=== PATIENT | female | born 1955 | race Caucasian/White ===

== ENCOUNTER 2017-11-01 23:56 | Emergency (ER) | payer OTHER ==
[~2017-11-01] VITALS: Ht 170.2 cm; Wt 76.5 kg
[~2017-11-01 23:56] MED LIST: AMLO10TA2 PO; LIPI10TA PO; LISI40TA PO; PROT40TA PO; PROZ20CA11 PO
[2017-11-02 00:02] VITALS: BP 130/74; PULSE 92; RESP 18; TEMP 97.8; O2SAT 97
[2017-11-02] MEDS ORDERED: ZOLP5TAB3 PO (00:13)
[2017-11-02] MEDS ORDERED: LOSA50TA PO (00:13)
[2017-11-02] MEDS ORDERED: HYDR25TA5 PO (00:13)
[2017-11-02] MEDS ORDERED: AMLO10TA2 PO (00:13)
[2017-11-02] MEDS ORDERED: TETANUS/DIPHTHERIA TOXOID PEDIATRIC 0.5 ML VIAL IM ONE (00:45)
--- NOTE | 2017-11-02 00:48 | PD ---
HPI Chief Complaint: Head Injury Time Seen by Provider: 00:03 Travel History International Travel<30 days: No Contact w/Intl Traveler<30days: No Traveled to known affect area: No History of Present Illness HPI The patient is a 62-year-old female that at 10:15 PM tonight fell about [address] on a corner of a countertop. It was no loss of consciousness and she denies any focal neurologic change or headache which she did sustain a laceration. She has not had a tetanus shot in 10 years. PFSH Past Medical History Anxiety: Yes Depression: Yes Cardiovascular Problems: Yes High Cholesterol: Yes Diminished Hearing: No GERD: Yes Hypertension: Yes Triglycerides - High: Yes Tetanus Vaccination: > 5 Years Influenza Vaccination: Yes ?: Not Menopausal: Yes : 2 Para: 0 Past Surgical History Joint Replacement: Yes (LEFT HIP) Family History Family Myocardial Infarction: Yes (MOTHER AND FATHER) Social History Alcohol Use: Yes (~3 X WEEKLY) Tobacco Use: No (QUIT 2009) Substance Use: No Allergies-Medications (Allergen,Severity, Reaction): Coded Allergies: codeine (Unverified Allergy, Mild, 11/02/17) meperidine (Unverified Allergy, Mild, 11/02/17) Reported Meds & Prescriptions Reported Meds & Active Scripts Active Reported Hydrochlorothiazide 25 Mg Tab 25 Mg PO DAILY Losartan (Losartan Potassium) 50 Mg Tab 50 Mg PO DAILY Amlodipine (Amlodipine Besylate) 10 Mg Tab 10 Mg PO DAILY Zolpidem (Zolpidem Tartrate) 5 Mg Tab 5 Mg PO HS Lipitor (Atorvastatin Calcium) 10 Mg Tab Unknown Dose PO HS Prozac (Fluoxetine HCl) 20 Mg Cap 20 Mg PO DAILY Protonix (Pantoprazole Sodium) 40 Mg Tab 40 Mg PO DAILY Review of Systems Except as stated in HPI: all other systems reviewed are Neg Physical Exam Narrative GENERAL: The patient is alert, oriented 3 in slight apparent distress with her laceration pain. Her vital signs are normal. SKIN: Focused skin assessment warm/dry. There is a V-shaped 2 cm laceration with 1 cm on each V on the occipital area. There is no associated skull deformity present. HEAD: Normocephalic. Neither raccoon eyes nor estrada sign is present. EYES: Pupils equal and round. No scleral icterus. No injection or drainage. ENT: No nasal bleeding or discharge. Mucous membranes pink and moist. There is no hemotympanum present. NECK: Trachea midline. No JVD. There is no C-spine tenderness and no posterior spinous process tenderness or deformity is present. CARDIOVASCULAR: Regular rate and rhythm. No murmur appreciated. RESPIRATORY: No accessory muscle use. Clear to auscultation. Breath sounds equal bilaterally. GASTROINTESTINAL: Abdomen soft, non-tender, nondistended. Hepatic and splenic margins not palpable. MUSCULOSKELETAL: No obvious deformities. No clubbing. No cyanosis. No edema. NEUROLOGICAL: Awake and alert. No obvious cranial nerve deficits. Motor grossly within normal limits. Normal speech. PSYCHIATRIC: Appropriate mood and affect; insight and judgment normal. Data Data Last Documented VS Vital Signs Date Time Temp Pulse Resp B/P (MAP) Pulse Ox O2 Delivery O2 Flow Rate FiO2 11/02/17 00:20 90 18 97 Room Air 11/02/17 00:02 97.8 130/74 (92) Orders Orders Wound Care (11/02/17 00:42) Ct Brain W/O Iv Contrast(Rout) (11/02/17 00:42) Tetanus/Diphtheria Tox Adult (Tetanus/Di (11/02/17 01:00) Acetaminophen (Tylenol) (11/02/17 02:15) MDM Medical Decision Making Medical Screen Exam Complete: Yes Emergency Medical Condition: Yes Medical Record Reviewed: Yes Interpretation(s) The CT the brain is normal. Differential Diagnosis Skull fracture-unlikely, laceration scalp, intracranial bleed-unlikely Narrative Course The patient has a scalp laceration. There is no evidence clinically or radiographically of skull fracture, intracranial bleed. Procedures Procedure Narrative The laceration was irrigated copiously with saline. A minimum of her cutting was done to expose the wound. Lidocaine with epinephrine was used to infiltrate the wound edges. 7 babak were put in. The patient tolerated the procedure fairly well. Diagnosis Primary Impression: Occipital scalp laceration Additional Instructions: Return in 7 days for staple removal. If you have any problems return immediately. Specifically if you get nausea, mental status or sudden onset of severe headache change he should return immediately, likely to [place] if you have these symptoms. Neurosurgery is done at [facility] and we will have to transfer him by ambulance at the worst possible time. Take plain Tylenol for pain. Med/Other Pt SpecificInfo: No Change to Meds Disposition: 01 DISCHARGE HOME Condition: Stable Raúl Olson MD Nov 02, 2017 00:47
[2017-11-02] MEDS ORDERED: TETANUS/DIPHTHERIA TOXOID ADULT 0.5 ML VIAL IM ONE (01:00)
--- NOTE | 2017-11-02 01:25 | RADRPT ---
EXAM DATE/TIME: 11/02/2017 00:58 [place] COMPARISON: No previous studies available for comparison. INDICATIONS : Tripped and fell. Hit posterior head RADIATION DOSE: 60.64 CTDIvol (mGy) MEDICAL HISTORY : Hypertension. SURGICAL HISTORY : None. ENCOUNTER: Initial ACUITY: 1 day PAIN SCALE: 9/10 LOCATION: occipital TECHNIQUE: Multiple contiguous axial images were obtained of the head. Using automated exposure control and adj ustment of the mA and/or kV according to patient size, radiation dose was kept as low as reasonably a chievable to obtain optimal diagnostic quality images. DICOM format image data is available electro nically for review and comparison. FINDINGS: CEREBRUM: The ventricles are normal for age. No evidence of midline shift, mass lesion, hemorrhage or acute in farction. No extra-axial fluid collections are seen. POSTERIOR FOSSA: The cerebellum and brainstem are intact. The 4th ventricle is midline. The cerebellopontine angle i s unremarkable. EXTRACRANIAL: The visualized portion of the orbits is intact. SKULL: Left-sided occipital scalp hematoma. The calvaria is intact. No evidence of skull fracture. CONCLUSION: No acute intracranial findings. Diego Snider MD on November 02, 2017 at 1:21 Board Certified Radiologist. This report was verified electronically.
[2017-11-02] MEDS ORDERED: ACETAMINOPHEN 500 MG CPLT PO ONE (02:15)
[2017-11-02 02:20] VITALS: BP 141/79; PULSE 98; RESP 16; O2SAT 96
== END 2017-11-02 02:40 | disposition home or self-care (01) ==
LOC: PHED 23:56
DX: S01.01XA Laceration without foreign body of scalp, initial encounter (principal); F41.9 Anxiety disorder, unspecified; F32.9 Major depressive disorder, single episode, unspecified; E78.00 Pure hypercholesterolemia, unspecified; K21.9 Gastro-esophageal reflux disease without esophagitis; I10 Essential (primary) hypertension; E78.1 Pure hyperglyceridemia; W18.00XA Striking against unspecified object with subsequent fall, initial encounter; Z23 Encounter for immunization
CPT/HCPCS: 12001; 70450; 90471; 90714